=== PATIENT | female | born 1930 | race African-American/Black ===

== ENCOUNTER 2017-07-25 14:53 | Emergency (ER) | payer MEDICARE ==
[~2017-07-25] VITALS: Ht 157.5 cm; Wt 62.6 kg
[2017-07-25 15:00] VITALS: BP 137/69
[2017-07-25 15:59] VITALS: BP 137/69
== END 2017-07-25 16:01 | disposition home or self-care (01) ==
LOC: MED 14:53
DX: M17.0 Bilateral primary osteoarthritis of knee (principal); Z88.0 Allergy status to penicillin
CPT/HCPCS: 73562; 99284

== ENCOUNTER 2018-08-19 15:10 | Emergency (ER) | payer MEDICARE ==
[~2018-08-19] VITALS: Ht 157.5 cm; Wt 54.4 kg
[2018-08-19 15:26] VITALS: BP 116/73
--- NOTE | 2018-08-19 15:31 | NUR ---
TO BED 11 WITH WALKER
--- NOTE | 2018-08-19 15:39 | NUR ---
DR MEYER AT BEDSIDE
[2018-08-19] MEDS ORDERED: HYDROcodone/APAP 5/325 MG 1 TAB TAB PO ONE (15:45)
--- NOTE | 2018-08-19 15:52 | NUR ---
87 year old female brought in by self ambulating with walker c/o chronic right hip pain. Patient stated her right hip has been hurting for the last 10 years but today the pain is worse at a level of 10/10. MedHx: DJP bilateral knees and Rheumatoid arthritis. Hx of 1 fall last year. Patient positioned comfortably in bed, HOB elevated, bedrail up x1. Waiting for MD to evaluate patient.
--- NOTE | 2018-08-19 15:56 | NUR ---
X-ray at bedside
[2018-08-19 16:38] VITALS: BP 129/56
--- NOTE | 2018-08-19 16:38 | NUR ---
Patient discharged with v/s stable. Written and verbal after care instructions given and explained. Patient alert, oriented and verbalized understanding of instructions. Ambulatory with walker. All questions addressed prior to discharge. ID band removed. Patient advised to follow up with PMD. Rx of Bartelso given. Patient educated on indication of medication including possible reaction and side effects. Opportunity to ask questions provided and answered.
== END 2018-08-19 16:38 | disposition home or self-care (01) ==
LOC: MED 15:10
DX: M16.0 Bilateral primary osteoarthritis of hip (principal); G89.29 Other chronic pain; M06.9 Rheumatoid arthritis, unspecified
CPT/HCPCS: 73502; 99283; Q0092